=== PATIENT | male | born 1975 | race Caucasian/White ===

== ENCOUNTER 2025-08-07 14:14 | Emergency (ER) | payer BC ==
[2025-08-07] MEDS ORDERED: Dexamethasone 10 MG/ML VIAL ONE (15:24)
[2025-08-07] MEDS ORDERED: Cyclobenzaprine 10 MG TAB ONE (15:24)
== END 2025-08-07 15:55 | disposition home or self-care (01) ==
LOC: ERS 14:14
DX: M54.50 Low back pain, unspecified (principal); F17.210 Nicotine dependence, cigarettes, uncomplicated; X50.0XXA Overexertion from strenuous movement or load, initial encounter
CPT/HCPCS: 72100; 96372; J1100